=== PATIENT | male | born 1950 | race Hispanic/Latino ===

== ENCOUNTER → 2020-06-20 | Outpatient (CLI) | payer MEDICARE ==
[~2020-06-20] MED LIST: ALBU18HF7 IH; ALBU8.5H8 IH; ASPI81TA40 PO; ATOR20TA65 PO; CILO100T PO; EZET10TA13 PO; FLUT1DIS3 IH; FURO20TA4 PO; GABA-529 PO; IPRA4AER IH; METO-408 PO; MOME17N NS; MONT10TA26 PO; OMEP40CA13 PO; POTA10CA44 PO; TAMS0.4C32 PO; TIOT4MIS5 IH
[2020-06-20 08:59] LABS: CREATININE 0.8 mg/dL (0.5-1.5)
== END | disposition home or self-care (01) ==
LOC: LAB 08:07
PROVIDERS: ATTEND Internal Medicine Cardiovascular Disease
DX: I71.4 Abdominal aortic aneurysm, without rupture (principal)
CPT/HCPCS: 36415; 82565; 84520

== ENCOUNTER → 2020-06-27 | Outpatient (CLI) | payer MEDICARE ==
[~2020-06-27] MED LIST changes: +IOHEXOL-350 75 ML VIAL IV ONE
== END | disposition home or self-care (01) ==
LOC: RAH 07:44
PROVIDERS: ATTEND Internal Medicine Cardiovascular Disease
DX: I71.4 Abdominal aortic aneurysm, without rupture (principal); Z95.828 Presence of other vascular implants and grafts
CPT/HCPCS: 74174; Q9967 ×2

== ENCOUNTER → 2020-07-11 | Outpatient (CLI) | payer OTHER ==
[~2020-07-11] MED LIST changes: -IOHEXOL-350 75 ML VIAL IV ONE
== END | disposition home or self-care (01) ==
LOC: RAH 14:14
PROVIDERS: ATTEND Internal Medicine Cardiovascular Disease
DX: Z13.6 Encounter for screening for cardiovascular disorders (principal)
CPT/HCPCS: 75571

== ENCOUNTER → 2023-10-29 | Outpatient (CLI) | payer MEDICARE ==
[~2023-10-29] MED LIST changes: -CILO100T PO; +CILO100T3 PO; -EZET10TA13 PO; +EZET10TA81 PO; +IOHEXOL 350 MG/ML 100ML INFUS..BTL IV ONE; -MOME17N NS; +MOME17SP4 NS; +MONT-39 PO; -MONT10TA26 PO; -OMEP40CA13 PO; +OMEP40CA21 PO; -POTA10CA44 PO; +POTA10CA85 PO
== END | disposition home or self-care (01) ==
LOC: RAH 09:24
PROVIDERS: ATTEND Internal Medicine Cardiovascular Disease
DX: I71.43 Infrarenal abdominal aortic aneurysm, without rupture (principal); M47.815 Spondylosis without myelopathy or radiculopathy, thoracolumbar region; I70.201 Unspecified atherosclerosis of native arteries of extremities, right leg; I70.0 Atherosclerosis of aorta
CPT/HCPCS: 74174; Q9967

== ENCOUNTER → 2024-10-16 | Outpatient (CLI) | payer MEDICARE, MEDICAID ==
[~2024-10-16] MED LIST changes: +IOHEXOL-350 50ML VIAL IV ONE; -POTA10CA85 PO; +POTA10CA95 PO
--- NOTE | 2024-10-17 19:34 | HMCIMG ---
CT ANGIO ABD AORTA W RUNOFF CLINICAL HISTORY: AAA W/O RUTURE COMPARISON: None TECHNIQUE: CT angiography of the abdomen and pelvis as well as bilateral lower extremities was performed both before and after intravenous contrast administration. The study was performed using angiographic technique with maximum intensity projection reconstruction images. Patient was given 150 ml of Omnipaque through intravenous route. CT was performed with one or more of the following dose reduction techniques: automated exposure control, adjustment of the mA and/or kV according to patient size, or use of iterative reconstruction technique FINDINGS: Lung bases are clear. The liver and spleen are unremarkable. The gallbladder is likely surgically absent. The pancreas and adrenal glands are unremarkable. The kidneys and bladder are within normal limits. There is no identified bowel obstruction. There is no bulky abdominal or retroperitoneal lymphadenopathy. Note is made of endovascular repair of the abdominal aorta with patent appearing stent grafts. 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 The left common and external iliac arteries are patent. There appears to be a tight stenosis at the origin of the left superficial femoral artery though beyond this tight stenosis appears patent with normal bifurcation of the popliteal artery and patent runoff to the left foot. Note is made of a common femoral artery stent on the right appears patent. The superficial femoral artery appears patent and there is normal bifurcation and anterior tibial artery and tibial peroneal trunk with patent appearing runoff to the right foot. IMPRESSION: There is no identified endovascular leak in this patient with change from prior endovascular repair of aortic abdominal aneurysm. 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 Runoff to the lower extremities is grossly patent. Outflow to the left lower extremity demonstrates a likely tight stenosis measuring roughly 50% at the origin of the left superficial femoral artery.
== END | disposition home or self-care (01) ==
LOC: EDSTATUS 10-05 10:00 → RAH 08:39
PROVIDERS: ATTEND Internal Medicine Cardiovascular Disease
DX: I71.40 Abdominal aortic aneurysm, without rupture, unspecified (principal)
CPT/HCPCS: 75635; Q9967 ×2